=== PATIENT | male | born 1955 | race Native Hawaiian/Other Pacific Islander ===

== ENCOUNTER 2018-02-19 09:28 | Outpatient (CLI) | payer MEDICARE, MEDICAID ==
--- NOTE | 2018-02-19 11:51 | MRI ---
PRE AND POSTCONTRAST ENHANCED MRI IMAGES OF THE BRAIN: HISTORY: Amnesia, R41.3. FINDINGS: Multiplanar, multisequence pre- and postcontrast-enhanced MRI images of the brain obtained. Images demonstrate the brain to be unremarkable. No evidence of intracranial masses, hemorrhages, st rokes, or contusions seen . Ventricles are of normal size. No significant evidence of brain atrophy seen. No evidence of abnormally enhancing masses or lesions seen. No evidence of old intracranial h emorrhage is seen. IMPRESSION: Normal pre- and postcontrast-enhanced MRI images of the brain. POS: [facility]
== END 2018-02-19 09:29 | disposition home or self-care (01) ==
LOC: BICMRI 09:28
PROVIDERS: ATTEND Family Medicine
DX: R41.3 Other amnesia (principal)
CPT/HCPCS: 70553

== ENCOUNTER 2018-03-23 15:57 | Emergency (ER) | payer MEDICARE, MEDICAID ==
[2018-03-23] MEDS ORDERED: Ketorolac Tromethamine 30 MG/ML VIAL ONE (16:36)
[2018-03-23] MEDS ORDERED: Ketorolac Tromethamine 60 MG/2 ML VIAL ONE (16:37)
== END 2018-03-23 17:52 | disposition home or self-care (01) ==
LOC: ERS 15:57
DX: M54.5 Low back pain (principal)
CPT/HCPCS: 96372; J1885

== ENCOUNTER 2018-03-24 13:00 | Emergency (ER) | payer MEDICARE, MEDICAID | END 2018-03-24 14:20 | disposition home or self-care (01) | LOC: ERS 13:00 | DX: M54.5 Low back pain (principal); Z87.891 Personal history of nicotine dependence | CPT/HCPCS: 99284 ==

== ENCOUNTER 2018-08-12 07:33 | Outpatient (CLI) | payer MEDICARE, OTHER ==
--- NOTE | 2018-08-12 08:35 | CT ---
EXAM: CT abdomen and pelvis with and without IV contrast PROVIDED CLINICAL HISTORY: Hematuria COMPARISON: None FINDINGS: 6 mm noncalcified left lower lobe pulmonary nodule. The lungs are otherwise free of significant opaci ty. There is a 1-2 mm nonobstructing calculus involving the midportion of the right kidney. No additional urinary tract calculi are evident. The liver, spleen, pancreas, kidneys and adrenal glands demonstrate an otherwise unremarkable CT appe arance. A prominent column of Mitchell is noted involving the midportion of the right kidney. The delay ed images demonstrate no evidence for filling defect involving the opacified ureters or urinary bladd er. There is no bowel dilatation, inflammatory fat stranding, free fluid or lymph node enlargement appare nt. Vascular calcifications are seen. The osseous structures demonstrate no concerning osteoblastic or osteolytic lesions. Degenerative silvana nges are seen. IMPRESSION: 1. 1-2 mm nonobstructing right renal calculus. 2. 6 mm noncalcified left lower lobe pulmonary nodule. Correlation with dedicated chest CT is recomme nded to assess for additional nodules.
== END 2018-08-12 07:34 | disposition home or self-care (01) ==
LOC: BICCT 07:33
PROVIDERS: ATTEND Urology
DX: R31.29 Other microscopic hematuria (principal); N20.0 Calculus of kidney; R91.1 Solitary pulmonary nodule
CPT/HCPCS: 74178; 82565

== ENCOUNTER 2018-09-04 19:35 | Emergency (ER) | payer MEDICARE, MEDICAID ==
--- NOTE | 2018-09-04 19:58 | RAD ---
3 views right shoulder: 09/04/2018 COMPARISON: None HISTORY: Injury, trauma, pain FINDINGS: Postoperative anchors overlie the right humeral head. No widening of the acromioclavicular or coracoclavicular interspace. No acute fracture or evidence of dislocation. IMPRESSION: No acute findings.
--- NOTE | 2018-09-04 19:59 | RAD ---
Portable frontal chest radiograph: 09/04/2018 COMPARISON: 03/10/2018 HISTORY: Injury, trauma, pain FINDINGS: Multiple old left-sided rib fractures are again noted. Heart and mediastinal contours are s table. The lungs are clear. IMPRESSION: No acute findings.
--- NOTE | 2018-09-04 20:01 | RAD ---
4 views right knee: 09/04/2018 COMPARISON: None HISTORY: Injury, trauma, pain FINDINGS: Postoperative screws are noted within the proximal right tibia. The bones appear deminerali zed. No displaced fracture or evidence of dislocation. No knee joint effusion. IMPRESSION: No acute osseous abnormality.
--- NOTE | 2018-09-04 20:10 | CT ---
Cervical spine CT without contrast: 09/04/2018 COMPARISON: None HISTORY: Injury, trauma, pain TECHNIQUE: Axial CT imaging at 2.5 mm intervals from skull base through lung apices with coronal and sagittal reformatted imaging FINDINGS: Imaged lung apices unremarkable. The C1 ring, occipital condyles, dens, and C1-2 articulation appear within normal limits. No anterolisthesis or retrolisthesis. There is disc space narrowing with degenerative endplate change and posterior osteophyte formation at C2-3, C5-6, and C6-7. No prevertebral soft tissue swelling. No acute fracture or evidence of dislocation. There is atherosc lerotic calcification of the proximal ICA bilaterally, left greater than right. IMPRESSION: Degenerative change. No acute osseous abnormality. Results called to the ordering physici leatha Lee at 8:08 PM 09/04/2018
--- NOTE | 2018-09-04 20:12 | CT ---
Head CT without contrast 09/04/2018: HISTORY: Trauma, pain TECHNIQUE: Axial CT imaging at 5 mm intervals from vertex through skull base without contrast FINDINGS: Imaged paranasal sinuses and mastoid air cells well-aerated. No displaced calvarial fractur e. No intracranial hemorrhage, midline shift, mass effect, or ventricular enlargement. IMPRESSION: No acute findings. Dr. Lee made aware at 8:08 PM 09/04/2018
== END 2018-09-04 20:27 | disposition home or self-care (01) ==
LOC: ERS 19:35
DX: R51 Headache (principal); M54.2 Cervicalgia; M25.561 Pain in right knee; M25.511 Pain in right shoulder; Z87.891 Personal history of nicotine dependence; V23.4XXA Motorcycle driver injured in collision with car, pick-up truck or van in traffic accident, initial encounter
CPT/HCPCS: 70450; 71045; 72125

== ENCOUNTER 2018-09-10 07:44 | Outpatient (CLI) | payer MEDICARE, OTHER ==
--- NOTE | 2018-09-10 08:25 | CT ---
CT chest noncontrast HISTORY: Lung nodule on CT abdomen. COMPARISON: CT abdomen from 08/12/2018. FINDINGS: A noncalcified 0.6 cm nodule abutting the left posterior hemidiaphragm is stable. Mild atel ectasis at each lung base. In the anterior aspect of the right upper lobe, a 0.8 cm linear nodule abuts the minor fissure. No pleural fluid or pneumothorax. Lack of contrast limits evaluation of the soft tissues. Tiny low-density lesion within the left adrenal gland is consistent with an adenoma. IMPRESSION: Very small pleural-based and subpleural bilateral lung nodules, as detailed above. As a conservative measure, please consider follow-up CT chest in one year to evaluate for stability.
== END 2018-09-10 07:45 | disposition home or self-care (01) ==
LOC: BICCT 07:44
PROVIDERS: ATTEND Family Medicine
DX: R91.8 Other nonspecific abnormal finding of lung field (principal)
CPT/HCPCS: 71250

== ENCOUNTER 2019-03-27 12:43 | Emergency (ER) | payer MEDICARE, OTHER ==
--- NOTE | 2019-03-27 13:41 | RAD ---
LEFT HIP TWO VIEWS: 03/27/2019 PROVIDED CLINICAL HISTORY: Pain status post injury. FINDINGS: Evaluation is limited due to the portable nature of the examination. There is no definite evidence fo r fracture or other acute osseous abnormality. If there is persistent clinical concern conservative management and follow-up imaging are advised. IMPRESSION: As above. POS: [facility]
--- NOTE | 2019-03-27 13:49 | CT ---
CT BRAIN: 03/27/2019 PROVIDED CLINICAL HISTORY: Trauma. COMPARISON: 09/04/2018 FINDINGS: The ventricular system appears normal in size and morphology. There is no evidence for intracranial h emorrhage or mass effect. The extracranial soft tissues and osseous structures demonstrate an unremar kable CT appearance. IMPRESSION: No evidence for intracranial hemorrhage or mass effect. POS: [facility]
[2019-03-27] MEDS ORDERED: Ketorolac Tromethamine 30 MG/ML VIAL ONE (14:26)
== END 2019-03-27 15:15 | disposition home or self-care (01) ==
LOC: ERS 12:43
DX: S30.0XXA Contusion of lower back and pelvis, initial encounter (principal); N40.0 Benign prostatic hyperplasia without lower urinary tract symptoms; F20.9 Schizophrenia, unspecified; V23.4XXA Motorcycle driver injured in collision with car, pick-up truck or van in traffic accident, initial encounter; Z79.891 Long term (current) use of opiate analgesic
CPT/HCPCS: 70450; 96372; G0390; J1885

== ENCOUNTER 2019-03-31 09:38 | Emergency (ER) | payer MEDICARE, OTHER | END 2019-03-31 10:54 | disposition home or self-care (01) | LOC: ERS 09:38 | DX: M25.461 Effusion, right knee (principal); F20.9 Schizophrenia, unspecified; Z87.891 Personal history of nicotine dependence | CPT/HCPCS: 99283 ==

== ENCOUNTER 2019-04-05 09:09 | Outpatient (CLI) | payer MEDICARE, OTHER ==
--- NOTE | 2019-04-05 10:03 | CT ---
CT chest noncontrast HISTORY: Lung nodule. Follow-up. COMPARISON: 09/10/2018. FINDINGS: Lungs remain hyperinflated. An oval noncalcified subsegmental nodule at the right anterior lung base is favored to be within the intersegmental fissure of the right middle lobe. It is 0.7 cm greatest diameter and is stable. A 0.5 cm subpleural nodule within the lateral right lung base within the lateral segment of the right middle lobe is stable. A 0.7 cm noncalcified nodule at the left posterior costophrenic angle abutting the pleura over the di aphragmatic surface is stable. No new lung nodules are apparent. Lack of contrast limits evaluation of the soft tissues. Nonspecific, nonenlarged lymph nodes scattere d about the mediastinum. Old left posterior rib fractures. Tiny adenomas of the adrenal glands appear stable. The inferior mos t image partially shows a small calcification within a nondilated calyx at the posterior aspect of the right kidney. IMPRESSION: Stable CT appearance of subcentimeter bilateral lung nodules. No new abnormalities. Pulmonary hyperinflation. Small nonobstructing right renal calculus. Chronic-type findings are stable.
== END 2019-04-05 09:10 | disposition home or self-care (01) ==
LOC: BICCT 09:09
PROVIDERS: ATTEND Internal Medicine Critical Care Medicine
DX: R91.1 Solitary pulmonary nodule (principal); R91.8 Other nonspecific abnormal finding of lung field; N20.0 Calculus of kidney; D35.00 Benign neoplasm of unspecified adrenal gland
CPT/HCPCS: 71250

== ENCOUNTER 2019-04-08 08:49 | Emergency (ER) | payer MEDICARE, OTHER | END 2019-04-08 10:30 | disposition home or self-care (01) | LOC: ERS 08:49 | DX: M54.16 Radiculopathy, lumbar region (principal); F41.9 Anxiety disorder, unspecified; F32.9 Major depressive disorder, single episode, unspecified; F20.9 Schizophrenia, unspecified | CPT/HCPCS: 99283 ==

== ENCOUNTER 2019-05-07 10:38 | Emergency (ER) | payer MEDICAID, MEDICARE ==
--- NOTE | 2019-05-07 12:01 | RAD ---
EXAM: XR Ribs Lt>=2 View STANDARD PROVIDED CLINICAL HISTORY: Pain status post injury COMPARISON: CT chest 04/05/2019 FINDINGS: Multiple remote posterior left-sided rib fractures are redemonstrated. There is no evidence for an ac tribal displaced left-sided rib fracture, pleural fluid or pneumothorax. IMPRESSION: As above.
[2019-05-07] MEDS ORDERED: HYDROcodone/Acetaminophen 10/325 mg Tablet ONE (12:04)
[2019-05-07] MEDS ORDERED: Ibuprofen 800 MG TAB ONE (12:07)
== END 2019-05-07 12:27 | disposition home or self-care (01) ==
LOC: ERS 10:38
DX: S20.212A Contusion of left front wall of thorax, initial encounter (principal); F41.9 Anxiety disorder, unspecified; F32.9 Major depressive disorder, single episode, unspecified; F20.9 Schizophrenia, unspecified; W18.30XA Fall on same level, unspecified, initial encounter

== ENCOUNTER 2019-05-13 17:13 | Emergency (ER) | payer MEDICAID, MEDICARE ==
--- NOTE | 2019-05-13 20:34 | RAD ---
TWO VIEWS CHEST: 05/13/19 HISTORY: Chest injury. COMPARISON: 09/04/18. FINDINGS: The cardiac silhouette and pulmonary vasculature are within normal limits. There are bibasilar linear densities probably related to atelectasis. Multiple remote left sided rib fractures and deformity a re again seen. There is a mild compression fracture involving a mid thoracic vertebral body. This is seen on prior CT thorax on 04/05/19. Postsurgical changes right shoulder are noted. IMPRESSION: 1. Bibasilar atelectasis, but there is otherwise no acute cardiopulmonary process. 2. Remote left sided rib fractures. POS: [facility]
[2019-05-13] MEDS ORDERED: Ibuprofen 200 MG TAB ONE ×2 (22:46→22:52)
== END 2019-05-13 23:45 | disposition home or self-care (01) ==
LOC: ERS 17:13
DX: S20.212A Contusion of left front wall of thorax, initial encounter (principal); N40.0 Benign prostatic hyperplasia without lower urinary tract symptoms; F41.9 Anxiety disorder, unspecified; F32.9 Major depressive disorder, single episode, unspecified; F20.9 Schizophrenia, unspecified; Z79.899 Other long term (current) drug therapy; W18.30XA Fall on same level, unspecified, initial encounter
CPT/HCPCS: 71046; 93005

== ENCOUNTER 2019-05-16 12:14 | Emergency (ER) | payer MEDICARE, OTHER | END 2019-05-16 12:48 | disposition home or self-care (01) | LOC: ERS 12:14 | DX: S20.212A Contusion of left front wall of thorax, initial encounter (principal); N40.0 Benign prostatic hyperplasia without lower urinary tract symptoms; F41.9 Anxiety disorder, unspecified; F32.9 Major depressive disorder, single episode, unspecified; F20.9 Schizophrenia, unspecified | CPT/HCPCS: 99283 ==

== ENCOUNTER 2019-10-31 15:36 | Observation (INO) | payer MEDICARE, MEDICAID, OTHER ==
[~2019-10-31 15:36] MED LIST: Iopamidol-370 76% 500 ML 1 ML ONE
[2019-10-31] MEDS ORDERED: Acetaminophen 500 MG TAB ONE ×2 (16:11→16:16)
[2019-10-31] MEDS ORDERED: Azithromycin 500 MG VIAL ONE ×2 (16:11→16:16)
[2019-10-31 16:28] LABS: Hemoglobin 15.9 g/dL (14.0-18.0); Mean Corpuscular HGB CONC 33.1 g/dL (32.0-36.0); Mean Corpuscular Volume 93.6 fL (78.0-98.0); Mean Platelet Volume 8.1 fL (7.4-10.4); Platelet Count 240 thou/uL (130-400); RBC Distribution Width 11.9 % (11.5-14.5); Red Blood Cell (RBC) Count 5.14 mill/uL (4.70-6.10); White Blood Cell (WBC) Count 5.8 thou/uL (4.8-10.8)
[2019-10-31 16:43] LABS: Bilirubin Negative (Negative); Blood, Urine Negative (Negative); Clarity Clear (Clear); Glucose, Urine (Dipstick) Normal (Negative); Leukocyte Negative Leu/uL (Negative); Nitrite Negative (Negative); Protein, Urine (Dipstick) Negative (Neg-Trace); Urobilinogen Normal mg/dL (Less than 2)
[2019-10-31 16:46] LABS: ALT (SGPT) 49 U/L (8-55); AST (SGOT) 25 U/L (5-34); Albumin 4.4 g/dL (3.4-4.8); Alkaline Phosphatase 51 U/L (40-110); Anion Gap 13 mmol/L (10-20); BUN (Urea Nitrogen) 16 mg/dL (8.4-25.7); Bilirubin, Total 0.2 mg/dL (0.2-1.2); Calc. Creatinine Clearance 0 mL/min (70-130); Calcium 8.9 mg/dL (7.8-10.44); Carbon Dioxide 25 mmol/L (23-31); Chloride 103 mmol/L (98-107); Estimated GFR-MDRD 56; Glucose 96 mg/dL (80-115); Protein, Total 7.4 g/dL (5.8-8.1); Sodium 137 mmol/L (136-145)
[2019-10-31 16:48] LABS: Band 18 % (5-11); Eosinophils 3 % (0-10); Lymphocytes 5 % (21-51); MDiff Complete? YES; Monocytes 16 % (0-10); Neutrophil 41 % (42-75); Platelet Morphology Comment Appears Adequate; RBC Morphology Normal; Reactive Lymphocytes 16 % (0-10)
[2019-10-31] MEDS ORDERED: cefTRIAXone\\ROCEPHIN 1 GM VIAL ONE (17:26)
--- NOTE | 2019-10-31 18:02 | RAD ---
AP CHEST: History: Fever Comparison: 2019 FINDINGS: Mild elevated left hemidiaphragm is again noted. I cannot exclude hazy infiltrate in the left lung ba se. The lungs otherwise are clear and unchanged. Old left rib fractures again noted. Mild cardiomegal y again noted. IMPRESSION: Elevated left hemidiaphragm and mild cardiomegaly degrade evaluation of the lung base. I cannot exclu de left basilar atelectasis or infiltrate. POS: [facility]
[2019-10-31] MEDS ORDERED: Acetaminophen 650 MG Suppository PR PRN (19:14)
[2019-10-31] MEDS ORDERED: Sodium Chloride 0.65% Nasal 44 ML BOT EA NARE PRN (19:17)
--- NOTE | 2019-10-31 19:46 | CT ---
CTA Angio Chest W WO Con 10/31/2019 7:18 PM Indication: Shortness of breath with low O2 sats, cough and headache Technique: Multiple CTA images were obtained of the thorax with IV contrast. 3-D rendering: MIP liss nstructed images were created and reviewed. Comparison: CT of the thorax without contrast dated April 05, 2019 Findings: Pulmonary arteries: No central or segmental pulmonary embolus is evident. Heart and Aorta: There are mild vascular calcification involving the thoracic aorta and coronary art eries. Mediastinum:Normal appearing. No enlarged lymph nodes. Lungs:There are peripheral areas of airspace opacity and volume loss involving the posterior lower lo bes bilaterally as well as portions of the right middle lobe and lingula. No air bronchograms are evident. Pleural space: Clear. Upper Abdomen: No acute abnormality. Osseous Structures: Mild superior endplate compression abnormalities of T4 and T8 are stable. No acu te fracture or subluxation demonstrated. There is scattered degenerative and osteoarthritic change present. Soft tissues:No abnormality. Other findings:None. Impression: 1. No central or segmental pulmonary embolus demonstrated. 2. Peripheral areas of subsegmental volume loss and airspace opacity within the posterior lower lobes as well as portions the right middle lobe and lingula. This is not a typical pattern seen with Covid 19 infection; however, an atypical bronchopneumonia, possibly related Covid 19 infection, canno t be entirely excluded. Would recommend consideration for Covid testing and continued radiographic follow-up are
--- NOTE | 2019-10-31 20:40 | HP ---
TIME OF ASSESSMENT: 1830 hours. CHIEF COMPLAINT: Shortness of breath and cough. HISTORY OF PRESENT ILLNESS: Mr. Mora is a 64-year-old gentleman, who presents to the emergency department due to concerns over a new cough and shortness of breath. The patient states he was doing well until having steroid injections to his cervical spine. He states he was experiencing persistent headaches for several days and his son, whom he went to his appointment with, had come down with cold-like symptoms. The patient became concerned that he had been exposed to COVID-19 when going to appointments with his son and they did ride in a car together. The patient states his cough has been persistent and dry. He has had nasal congestion, which he feels does contribute to the shortness of breath. He does feel somewhat anxious and worried about being exposed to COVID-19. He was not feeling better and felt generally unwell, therefore opted to come in and seek medical attention. He denies having any fevers at home. Denies having any chest pain. Denies having any nausea, vomiting, or diarrhea. No abdominal pain. No urinary symptoms. All other review of systems are negative. EMERGENCY DEPARTMENT COURSE: In the emergency department, he underwent a chest x-ray that showed an elevated left hemidiaphragm and mild cardiomegaly and it was said that left basilar atelectasis or infiltrate cannot be excluded. He had laboratory studies done showing a white count of 5.8, hemoglobin 15.9, hematocrit 48.1, platelets 240, bands 18. BMP unremarkable. LFTs normal. GFR 56, creatinine 1.30. Lactic acid 0.7. Urinalysis was done and was unremarkable. On initial presentation, he was noted to have sats of 95% on 2 L. Currently, sats are 98% on 4 L. He has had a low-grade temperature of 99.2. He has been slightly tachycardic from a pulse of 109 to 117. Blood pressure has been stable. The patient was given 1 L of normal saline and started on antibiotics for pneumonia (Rocephin and azithromycin). He was given Tylenol for his low-grade temperature. COVID-19 testing done. PAST MEDICAL HISTORY: 1. Anxiety. 2. Depression. 3. Schizophrenia. 4. Chronic cervical spine pain. PAST SURGICAL HISTORY: 1. Right shoulder surgery in 2012. 2. Right knee surgery in 2004. SOCIAL HISTORY: The patient denies any current tobacco use, but he did smoke previously and quit more than 10 years ago. Denies any heavy alcohol consumption. Denies any drug use. ALLERGIES: NO KNOWN DRUG ALLERGIES. CURRENT MEDICATIONS: None. PHYSICAL EXAMINATION: GENERAL: The patient appears well developed, well nourished, and in no acute distress. VITAL SIGNS: Temperature 99.2, pulse 109, blood pressure 162/92, respirations 22, O2 sats 95% on 2 L of O2 by nasal cannula. HEENT: Normocephalic and atraumatic. Pupils are equal, round, and reactive to light. Sclerae icterus. Oropharynx is clear. NECK: Supple. LUNGS: Coarse sounds at the bilateral bases. CARDIAC: Regular rate and rhythm. ABDOMEN: Soft, nontender, nondistended. Normoactive bowel sounds present. No guarding or rigidity. No renal angle tenderness. EXTREMITIES: No lower leg swelling or edema. No calf tenderness. NEUROLOGIC: Alert and oriented x3. No neuro deficits on exam. SKIN: Warm and dry. INVESTIGATIONS: As mentioned above in HPI. IMPRESSION AND PLAN: Mr. Mora is a 64-year-old gentleman, has been admitted for management of the following. 1. Suspected pneumonia. The patient is started on IV antibiotics with azithromycin and Rocephin. We will continue antibiotics as he does have bandemia and low- grade temperature. CT angiogram of the chest pending, we will monitor O2 saturations. Coronavirus disease testing pending. 2. Shortness of breath. Chest x-ray notable for mild cardiomegaly. The patient without any known history of heart failure/cardiac disease. We will add BNP to the labs. Consider echocardiogram once Coronavirus disease testing negative. Again , we will continue to monitor O2 saturations. Gentle hydration. Shortness of breath seemed to be mainly associated with nasal congestion. We will give [place] nasal spray to clear his sinuses. 3. Suspected Coronavirus disease-19. Testing done in the emergency department and results currently pending. 4. Gastrointestinal prophylaxis with famotidine. 5. Deep venous thrombosis prophylaxis. CT angiogram to rule out pulmonary embolism pending. If negative, I will order mechanical SCDs. 6. Code status full. Surrogate decision maker is his son, Dung Mora. Case discussed with attending, who agrees upon care as described above. Job ID: [id number] MTDD
[2019-10-31] MEDS ORDERED: Cepastat Lozenges 1 LOZ PO PRN (22:06)
[2019-10-31] MEDS ORDERED: diphenhydrAMINE 25 MG CAP PO PRN (22:07)
[2019-10-31] MEDS: Acetaminophen 325 MG TAB PO PRN (22:31)
[2019-11-01] MEDS ORDERED: Ketorolac Tromethamine 30 MG/ML VIAL IVP PRN (00:29)
[2019-11-01] MEDS: Acetaminophen 325 MG TAB PO PRN ×3 (05:11→21:08)
[2019-11-01 05:34] LABS: #Lymphocytes 1.5 thou/uL (1.20-3.40); #Monocytes 0.8 thou/uL (0.11-0.59); #Neutrophils 3.9 thou/uL (1.40-6.50); %Basophils 0.8 % (0.0-1.0); %Eosinophils 0.6 % (0.0-10.0); %Lymphocytes 23.5 % (21.0-51.0); %Monocytes 12.2 % (0.0-10.0); %Neutrophils 62.9 % (42.0-75.0); Hemoglobin 16.1 g/dL (14.0-18.0); Mean Corpuscular HGB CONC 33.1 g/dL (32.0-36.0); Mean Corpuscular Hemoglobin 31.4 pg (27.0-31.0); Mean Corpuscular Volume 95.1 fL (78.0-98.0); Mean Platelet Volume 7.9 fL (7.4-10.4); Platelet Count 221 thou/uL (130-400); Red Blood Cell (RBC) Count 5.13 mill/uL (4.70-6.10); White Blood Cell (WBC) Count 6.2 thou/uL (4.8-10.8)
[2019-11-01 05:54] LABS: ALT (SGPT) 40 U/L (8-55); AST (SGOT) 22 U/L (5-34); Alkaline Phosphatase 41 U/L (40-110); Anion Gap 14 mmol/L (10-20); BUN (Urea Nitrogen) 15 mg/dL (8.4-25.7); Bilirubin, Total 0.4 mg/dL (0.2-1.2); Calc. Creatinine Clearance 0 mL/min (70-130); Calcium 8.5 mg/dL (7.8-10.44); Carbon Dioxide 22 mmol/L (23-31); Chloride 105 mmol/L (98-107); Estimated GFR-MDRD 83; Globulin 2.7 g/dL (2.4-3.5); Glucose 97 mg/dL (80-115); Potassium 4.2 mmol/L (3.5-5.1); Protein, Total 6.7 g/dL (5.8-8.1); Sodium 137 mmol/L (136-145)
--- NOTE | 2019-11-01 09:17 | PDOC.HOSPP ---
- Subjective Encounter Date: 11/01/19 Encounter Time: 12:20 Subjective: Patient with significant shortness of breath on and off, mostly sating well on RA, but just now with tachypnea, put on 2L NC, sats at 92% - Objective Vital Signs & Weight: Vital Signs (12 hours) Temp Pulse Resp BP BP Pulse Ox 11/01/19 08:33 98.1 F 85 22 H 125/78 95 11/01/19 02:30 99.9 F H 94 24 H 130/78 2 L 10/31/19 23:55 103 F H 103 H 24 H 10/31/19 22:00 101.4 F H 87 30 H 96 10/31/19 21:45 99.4 F 103 H 22 H 143/86 H 96 Result Diagrams: 11/01/19 05:09 11/01/19 05:09 Hospitalist ROS - Review of Systems Constitutional: denies: fever, chills Respiratory: reports: cough, shortness of breath, SOB with excertion Cardiovascular: denies: chest pain Gastrointestinal: denies: nausea, vomiting, abdominal pain - Medication Medications: Active Medications Generic Name Dose Route Start Last Admin Trade Name Freq PRN Reason Stop Dose Admin Acetaminophen 650 mg 10/31/19 19:14 11/01/19 05:11 Tylenol PO 650 mg Q4H PRN Administration Headache/Fever/Mild Pain (1-3) Diphenhydramine HCl 25 mg 10/31/19 22:07 10/31/19 22:31 Benadryl PO 25 mg HSPRN PRN Administration Itching & Insomnia Ketorolac Tromethamine 15 mg 11/01/19 00:29 11/01/19 00:42 Toradol IVP 11/06/19 00:30 15 mg Q6H PRN Administration Pain Pantoprazole Sodium 40 mg 11/01/19 09:00 11/01/19 08:08 Protonix PO 40 mg DAILY RIYA Administration Sodium Chloride 0 ml 10/31/19 19:17 10/31/19 22:31 [place] Nasal [place] 0.65% EA NARE 2 sprays TIDPRN PRN Administration Nasal Congestion Throat Lozenges 1 cory 10/31/19 22:06 10/31/19 22:31 Cepastat Lozenges PO 1 cory Q2H PRN Administration Sore Throat - Exam General Appearance: NAD, awake alert ENT: moist mucosa Heart: RRR, no murmur, no gallops, no rubs Respiratory: CTAB, no wheezes, no rales, no ronchi Respiratory - other findings: mild increased WOB Gastrointestinal: soft, non-tender, non-distended, normal bowel sounds Psychiatric: normal behavior, A&O x 3 Psychiatric - other findings: anxious Hosp A/P (1) Pneumonia Code(s): J18.9 - PNEUMONIA, UNSPECIFIED ORGANISM Status: Acute (2) Suspected COVID-19 virus infection Code(s): Z20.828 - CONTACT W AND EXPOSURE TO OTH VIRAL COMMUNICABLE DISEASES Status: Acute (3) Chronic neck pain Code(s): M54.2 - CERVICALGIA; G89.29 - OTHER CHRONIC PAIN Status: Chronic (4) Anxiety Code(s): F41.9 - ANXIETY DISORDER, UNSPECIFIED Status: Chronic (5) Schizophrenia Code(s): F20.9 - SCHIZOPHRENIA, UNSPECIFIED Status: Chronic - Plan Patient with monocytosis, suspect viral illness. Did spike fever to 101 in the hospital. Covid-19 test pending. If negative will check respiratory viral panel. Only requiring oxygen occasionally at this time, suspect shortness of breath and tachypnea is anxiety related. No evidence of cardiomegaly on the CTA and nml BNP so doubt cardiac disease
--- NOTE | 2019-11-01 12:04 | EKG ---
Test Reason : Blood Pressure : / mmHG Vent. Rate : 116 BPM Atrial Rate : 116 BPM P-R Int : 148 ms QRS Dur : 094 ms QT Int : 314 ms P-R-T Axes : 045 028 028 degrees QTc Int : 436 ms Sinus tachycardia Cannot rule out Anterior infarct , age undetermined Abnormal ECG Confirmed by FIORDALIZA ADEN, JOANNE Olmstead ([id number]), graphic editor JONATHON PEGUERO ([id number]) on 11/01/2019 12:04:21 PM Referred By: Confirmed By:JOANNE MANCERA MD
[2019-11-01 14:09] LABS: SARS-CoV-2 MS2 Positive; SARS-CoV-2 N Gene Positive; SARS-CoV-2 S Gene Positive; SARS-CoV-2 orf1ab Positive
[2019-11-01] MEDS ORDERED: Azithromycin 500 MG in Sodium Chloride 0.9% 250 ML 250 ML IVPB SCH (16:00)
[2019-11-01] MEDS ORDERED: cefTRIAXone\\ROCEPHIN 1 GM in Sodium Chloride 0.9% 100 ML IVPB SCH (17:00)
--- NOTE | 2019-11-02 08:43 | PDOC.HOSPP ---
- Subjective Encounter Date: 11/02/19 Encounter Time: 13:00 Subjective: Patient feeling much better. No more shortness of breath. Hasn't coughed any this morning. No more fever. - Objective Vital Signs & Weight: Vital Signs (12 hours) Temp Pulse Resp BP BP Pulse Ox 11/02/19 04:26 97.8 F 77 18 121/54 L 95 11/02/19 01:41 93 L 11/02/19 00:40 98.6 F 77 20 119/65 93 L 11/01/19 21:08 98.9 F 81 20 128/70 96 I&O: 11/01/19 11/02/19 11/03/19 06:59 06:59 06:59 Intake Total 2530 Balance 2530 Result Diagrams: 11/01/19 05:09 11/01/19 05:09 Hospitalist ROS - Review of Systems Constitutional: denies: fever, chills Respiratory: denies: cough, shortness of breath Cardiovascular: denies: chest pain, palpitations Gastrointestinal: denies: nausea, vomiting, abdominal pain - Medication Medications: Active Medications Generic Name Dose Route Start Last Admin Trade Name Freq PRN Reason Stop Dose Admin Acetaminophen 650 mg 10/31/19 19:14 11/01/19 21:08 Tylenol PO 650 mg Q4H PRN Administration Headache/Fever/Mild Pain (1-3) Diphenhydramine HCl 25 mg 10/31/19 22:07 10/31/19 22:31 Benadryl PO 25 mg HSPRN PRN Administration Itching & Insomnia Azithromycin 500 mg/ Sodium 250 mls @ 250 mls/hr 11/01/19 16:00 11/01/19 16: 04 Chloride IVPB 250 mls Q24HR RIYA Administration Ceftriaxone Sodium 1 gm/ 100 mls @ 200 mls/hr 11/01/19 17:00 11/01/19 16:04 Sodium Chloride IVPB 100 mls Q24HR RIYA Administration Ketorolac Tromethamine 15 mg 11/01/19 00:29 11/01/19 00:42 Toradol IVP 11/06/19 00:30 15 mg Q6H PRN Administration Pain Pantoprazole Sodium 40 mg 11/01/19 09:00 11/01/19 08:08 Protonix PO 40 mg DAILY RIYA Administration Sodium Chloride 0 ml 10/31/19 19:17 10/31/19 22:31 [place] Nasal [place] 0.65% EA NARE 2 sprays TIDPRN PRN Administration Nasal Congestion Throat Lozenges 1 cory 10/31/19 22:06 10/31/19 22:31 Cepastat Lozenges PO 1 cory Q2H PRN Administration Sore Throat - Exam General Appearance: NAD, awake alert ENT: moist mucosa Heart: RRR, no murmur, no gallops, no rubs Respiratory: CTAB, no wheezes, no rales, no ronchi Gastrointestinal: soft, non-tender, non-distended, normal bowel sounds Psychiatric: normal affect, normal behavior, A&O x 3 Hosp A/P (1) Pneumonia Code(s): J18.9 - PNEUMONIA, UNSPECIFIED ORGANISM Status: Acute (2) Suspected COVID-19 virus infection Code(s): Z20.828 - CONTACT W AND EXPOSURE TO OTH VIRAL COMMUNICABLE DISEASES Status: Acute (3) Chronic neck pain Code(s): M54.2 - CERVICALGIA; G89.29 - OTHER CHRONIC PAIN Status: Chronic (4) Anxiety Code(s): F41.9 - ANXIETY DISORDER, UNSPECIFIED Status: Chronic (5) Schizophrenia Code(s): F20.9 - SCHIZOPHRENIA, UNSPECIFIED Status: Chronic - Plan Covid positive. Sating well off O2. Intermittent SOB and tachypnea appears anxiety related- resolved after he talked to a friend of his in [place] that is a doctor and he realized that he doesn't have a severe case. Very happy this morning. No evidence of cardiomegaly on the CTA and nml BNP so doubt cardiac disease Ok to d/c home to complete 10 day isolation.
[2019-11-02 12:50] VITALS: BP 143/90; TEMP 97.8
--- NOTE | 2019-11-03 01:37 | DIS ---
DATE OF ADMISSION: 10/31/2019 DATE OF DISCHARGE: 11/02/2019 PRIMARY CARE PHYSICIAN: Dr. Decker. REASON FOR ADMISSION: Shortness of breath and cough with COVID exposure. DIAGNOSES AT DISCHARGE: 1. COVID pneumonia. 2. Anxiety. 3. Schizophrenia. 4. Chronic neck pain. PROCEDURES: 1. CT angio of the chest without contrast showing no central or segmental pulmonary embolism. I did have some peripheral areas of subsegmental volume loss and airspace opacity within the posterior lobes, not a typical pattern for COVID-19 infection, but possibly atypical bronchopneumonia versus an atypical COVID-19 infection. CONSULTATIONS: None. SUMMARY OF HOSPITAL COURSE: This is a 64-year-old [place] gentleman who came to the emergency room with cough and shortness of breath, also with some headaches for several days. His son did come down with cold-like symptoms as well and patient was concerned he might have been exposed to COVID-19 during his doctor's appointment for his neck to get some injections. The patient was found to have tachypnea on and off. This improved when given oxygen. However, his oxygen saturations were never low. He did have possible cardiomegaly on his chest x-rays. A B-type natriuretic peptide was don, which was normal and a CT angio showed no clots and no evidence of cardiomegaly. The patient was observed in the hospital. He never had any desaturations. He had intermittent episodes of significant shortness of breath with tachypnea. This was thought possibly due to his anxiety. The patient's test eventually did come back positive for COVID-19. On the last day of hospital admission, we did talk to a doctor who also [place], who was able to speak him in his language and explain this is how severe COVID look like. The patient was relieved as his symptoms were actually mild and he had no more difficulties with shortness of breath or tachypneic after that. He was saturating well on room air, was eating well and was ready to be discharged home. DISCHARGE MANAGEMENT: Discharged home. ACTIVITY: As tolerated. DIET: Healthy heart diet. FOLLOWUP: Follow up with Dr. Decker in 1 to 2 weeks as needed. He is to self-isolate for another 7 days and at least for full 10 days since his symptoms started and can then stop his isolation after he has no fever for 3 days, off all medicines and after all of his cold symptoms are gone. Job ID: [id number]
== END 2019-11-02 14:15 | disposition home or self-care (01) ==
LOC: ERS 15:36 → T4-B 19:57
PROVIDERS: ADMIT Family Medicine; ATTEND Family Medicine
DX: U07.1 COVID-19 (principal); J12.89 Other viral pneumonia; F41.9 Anxiety disorder, unspecified; F32.9 Major depressive disorder, single episode, unspecified; F20.9 Schizophrenia, unspecified; G89.29 Other chronic pain; M54.2 Cervicalgia; Z87.891 Personal history of nicotine dependence
CPT/HCPCS: 71045; 71275; 80053 ×2; 81003; 83605; 83735; 83880; 85025 ×2; 87040; 90732; 93005; 94760; 96365; 96366; 96367; 96375; 99291; G0009; G0378 ×3; U0003; 36415; 87635; 90471; J0456; J0696; J1885; J3490; J7050; Q0163; Q9967

== ENCOUNTER 2020-03-02 12:09 | Outpatient (CLI) | payer MEDICARE, MEDICAID ==
--- NOTE | 2020-03-02 13:10 | ULT ---
BILATERAL CAROTID DUPLEX ULTRASOUND: HISTORY: Bilateral carotid bruits TECHNIQUE: Grayscale, color-flow and spectral Doppler ultrasound imaging of the extracranial carotid artery syst ems was performed bilaterally. FINDINGS: There is plaque formation on either side. The peak systolic velocity in the right ICA measures 85 cm/s with an end-diastolic velocity of 40 cm/ s and a systolic ratio of 0.73. The peak systolic velocity in the left ICA measures 76 cm/s with an end-diastolic velocity of 36 cm/s and a systolic ratio of 0.66. Flow in both vertebral arteries remains antegrade. IMPRESSION: No evidence of hemodynamically significant stenosis in either ICA.
--- NOTE | 2020-03-02 13:59 | MRI ---
MR the lumbar spine without contrast INDICATION: 64-year-old male with history of right-sided radicular pain COMPARISON: Lumbar spinal radiographs dated March 24, 2018 TECHNIQUE: Multiplanar multisequence MR images were obtained of lumbar spine without IV contrast. FINDINGS: Bone marrow: There is a nondisplaced stress fracture involving the interarticularis region of the rig ht S1 vertebral body best seen on image 37 series 7 image 2 of series 6. An additional stress fracture is seen involving the right L5 pedicle on image 30 of series 7 and image 3 of series 6. Distal spinal cord and conus: Normal. The conus seen to terminate at L2. Visualized retroperitoneum and paraspinal soft tissues: Normal. Vertebral levels: L5-S1: There is grade 1 anterolisthesis of L5 and S1. There is moderate bilateral facet joint degener ative change. There is a broad-based disc bulge. There is loss of disc space height. Constellation of findings induces mild bilateral neural foraminal narrowing.. L4-5: There is a broad-based disc bulge with mild facet joint degenerative change and loss of disc sp parris height. There is mild bilateral neural foraminal narrowing. L3-4: There is a mild broad-based disc bulge without appreciable central canal narrowing. There is mi ld encroachment on the neural foramina bilaterally. L2-3: There is a mild broad-based bulge with mild facet joint degenerative change but no appreciable central canal or neural foraminal narrowing L1-L2: No appreciable central canal or neuroforaminal narrowing. T12-L1: No appreciable central canal or neuroforaminal narrowing. IMPRESSION: 1. Nondisplaced stress fractures involving the right S1 pars interarticularis and the right L5 pedicl e. 2. Mild spondylosis of the lumbar spine with mild bilateral neural foraminal narrowing seen at L3-4 t hrough L5-S1.
== END 2020-03-02 12:10 | disposition home or self-care (01) ==
LOC: BICULT 12:09
PROVIDERS: ATTEND Family Medicine
DX: R09.89 Other specified symptoms and signs involving the circulatory and respiratory systems (principal); M48.47XA Fatigue fracture of vertebra, lumbosacral region, initial encounter for fracture; M47.26 Other spondylosis with radiculopathy, lumbar region; M47.27 Other spondylosis with radiculopathy, lumbosacral region; M48.061 Spinal stenosis, lumbar region without neurogenic claudication; M48.07 Spinal stenosis, lumbosacral region
CPT/HCPCS: 72148; 93880

== ENCOUNTER 2020-04-04 09:39 | Outpatient (CLI) | payer MEDICARE, OTHER ==
--- NOTE | 2020-04-04 11:07 | CT ---
CT THORAX WITHOUT CONTRAST: INDICATION: Followup lung nodules. COMPARISON: CT thorax dated 09/20/2018, 04/05/2019, and a CTA PE examination dated 10/23/2019. FINDINGS: Previously seen scattered areas of multifocal bronchopneumonia have largely resolved. There is some mild residual subsegmental atelectasis within portions of the lingula and left lower lobe. The 7 mm pulmonary nodule within the right middle lobe and 4 mm pulmonary nodule within the lateral right midd le lobe are stable. The 7 mm pleural-based pulmonary nodule in the posteromedial left lower lobe on image 150 of series 3 is stable measuring 6.4 mm. No new pulmonary nodule is evident. No enlarged l ymph nodes are evident. There are scattered coronary artery and thoracic aorta calcifications. A sm all 1.3 cm left adrenal adenoma is stable. There is mild fatty infiltration of the liver. There is scattered degenerative and osteoarthritic change. There are multiple healed left-sided rib fractures that are similar-appearing. IMPRESSION: 1. Stable pulmonary nodules. Followup examination in September of 2020 is recommended to document full 2 years worth of stability. 2. Resolution of previously seen multifocal bronchopneumonia. 3. Left adrenal adenoma. 4. Fatty liver. 5. Multiple healed left-sided rib fractures. POS: [facility]
== END 2020-04-04 09:40 | disposition home or self-care (01) ==
LOC: BICCT 09:39
PROVIDERS: ATTEND Internal Medicine Critical Care Medicine
DX: R91.8 Other nonspecific abnormal finding of lung field (principal); K76.0 Fatty (change of) liver, not elsewhere classified; D35.02 Benign neoplasm of left adrenal gland; S22.42XA Multiple fractures of ribs, left side, initial encounter for closed fracture
CPT/HCPCS: 71250

== ENCOUNTER 2020-12-31 19:00 | Outpatient (CLI) | payer MEDICARE, MEDICAID, OTHER | END 2020-12-31 19:01 | disposition home or self-care (01) | LOC: SLEEPLAB 19:00 | PROVIDERS: ATTEND Family Medicine | DX: G47.33 Obstructive sleep apnea (adult) (pediatric) (principal); G47.10 Hypersomnia, unspecified; G25.81 Restless legs syndrome; G47.61 Periodic limb movement disorder; R53.83 Other fatigue; F32.9 Major depressive disorder, single episode, unspecified; G47.00 Insomnia, unspecified; R35.1 Nocturia; S06.9X0A Unspecified intracranial injury without loss of consciousness, initial encounter; F20.9 Schizophrenia, unspecified; K21.9 Gastro-esophageal reflux disease without esophagitis; R06.83 Snoring; E66.9 Obesity, unspecified; Z68.34 Body mass index [BMI] 34.0-34.9, adult; V89.2XXA Person injured in unspecified motor-vehicle accident, traffic, initial encounter | CPT/HCPCS: 95810 ==

== ENCOUNTER 2021-03-12 11:48 | Emergency (ER) | payer MEDICARE, MEDICAID ==
[2021-03-12 13:55] LABS: #Eosinphils 0.3 thou/uL (0.0-0.7); #Lymphocytes 1.4 thou/uL (1.20-3.40); #Monocytes 0.6 thou/uL (0.11-0.59); #Neutrophils 3.8 thou/uL (1.40-6.50); %Basophils 0.8 % (0.0-1.0); %Eosinophils 4.6 % (0.0-10.0); %Lymphocytes 22.7 % (21.0-51.0); %Monocytes 9.1 % (0.0-10.0); %Neutrophils 62.8 % (42.0-75.0); Hemoglobin 15.7 g/dL (14.0-18.0); Mean Corpuscular Hemoglobin 32.3 pg (27.0-31.0); Mean Corpuscular Volume 92.3 fL (78.0-98.0); Mean Platelet Volume 7.5 fL (7.4-10.4); Platelet Count 246 thou/uL (130-400); RBC Distribution Width 11.5 % (11.5-14.5); Red Blood Cell (RBC) Count 4.87 mill/uL (4.70-6.10); White Blood Cell (WBC) Count 6.1 thou/uL (4.8-10.8)
[2021-03-12 14:16] LABS: ALT (SGPT) 39 U/L (8-55); AST (SGOT) 23 U/L (5-34); Albumin 4.2 g/dL (3.4-4.8); Alkaline Phosphatase 47 U/L (40-110); Anion Gap 11 mmol/L (10-20); BUN (Urea Nitrogen) 15 mg/dL (8.4-25.7); Bilirubin, Total 0.4 mg/dL (0.2-1.2); Calc. Creatinine Clearance 0 mL/min (70-130); Calcium 9.3 mg/dL (7.8-10.44); Carbon Dioxide 26 mmol/L (23-31); Chloride 106 mmol/L (98-107); Globulin 2.5 g/dL (2.4-3.5); Glucose 108 mg/dL (80-115); Lipase 16 U/L (8-78); Potassium 3.9 mmol/L (3.5-5.1); Protein, Total 6.7 g/dL (5.8-8.1); Sodium 139 mmol/L (136-145)
== END 2021-03-12 17:12 | disposition home or self-care (01) ==
LOC: ERS 11:48
DX: R10.11 Right upper quadrant pain (principal); N40.0 Benign prostatic hyperplasia without lower urinary tract symptoms
CPT/HCPCS: 36415; 76705; 80053; 83690; 85025

== ENCOUNTER 2021-04-13 10:13 | Outpatient (CLI) | payer MEDICARE, MEDICAID | END 2021-04-13 10:14 | disposition home or self-care (01) | LOC: BICCT 10:13 | PROVIDERS: ATTEND Internal Medicine Critical Care Medicine | DX: R91.8 Other nonspecific abnormal finding of lung field (principal) | CPT/HCPCS: 71250 ==

== ENCOUNTER 2021-06-30 10:49 | Inpatient (IN) | payer MEDICARE, OTHER ==
[2021-06-30] MEDS ORDERED: Iopamidol-370 76% 500 ML 1 ML ONE (11:44)
[2021-06-30 12:29] LABS: Bacteria/HPF 1+ HPF (None Seen); Bilirubin Negative (Negative); Blood, Urine Negative (Negative); Clarity Turbid (Clear); Glucose, Urine (Dipstick) Normal (Negative); Ketone, Urine Negative (Negative); Leukocyte 500 Leu/uL (Negative); Nitrite Negative (Negative); Protein, Urine (Dipstick) 70 mg/dL (Neg-Trace); RBC/HPF 0-3 HPF (0-3); Specific Gravity, Urine 1.039 (1.002-1.036); Squamous Epithelial 0-3 HPF (0-3); WBC/HPF Greater than 50 HPF (0-3)
[2021-06-30 12:32] LABS: #Eosinphils 0.1 thou/uL (0.0-0.7); #Lymphocytes 1.7 thou/uL (1.20-3.40); #Monocytes 1.1 thou/uL (0.11-0.59); #Neutrophils 15.3 thou/uL (1.40-6.50); %Basophils 0.1 % (0.0-1.0); %Eosinophils 0.4 % (0.0-10.0); %Lymphocytes 9.2 % (21.0-51.0); %Monocytes 6.2 % (0.0-10.0); %Neutrophils 84.1 % (42.0-75.0); Mean Corpuscular HGB CONC 32.8 g/dL (32.0-36.0); Mean Corpuscular Hemoglobin 31.4 pg (27.0-31.0); Mean Corpuscular Volume 95.9 fL (78.0-98.0); Mean Platelet Volume 7.8 fL (7.4-10.4); Platelet Count 256 thou/uL (130-400); RBC Distribution Width 11.9 % (11.5-14.5); Red Blood Cell (RBC) Count 5.09 mill/uL (4.70-6.10); White Blood Cell (WBC) Count 18.2 thou/uL (4.8-10.8)
[2021-06-30 12:40] LABS: ALT (SGPT) 33 U/L (8-55); AST (SGOT) 16 U/L (5-34); Albumin 4.4 g/dL (3.4-4.8); Alkaline Phosphatase 47 U/L (40-110); Anion Gap 16 mmol/L (10-20); BUN (Urea Nitrogen) 14 mg/dL (8.4-25.7); Calc. Creatinine Clearance 0 mL/min (70-130); Calcium 8.7 mg/dL (7.8-10.44); Carbon Dioxide 24 mmol/L (23-31); Chloride 106 mmol/L (98-107); Globulin 2.9 g/dL (2.4-3.5); Glucose 82 mg/dL (80-115); Potassium 4.7 mmol/L (3.5-5.1); Protein, Total 7.3 g/dL (5.8-8.1); Sodium 141 mmol/L (136-145)
[2021-06-30] MEDS ORDERED: Lorazepam 2 MG/ML VIAL ONE ×2 (13:53→14:14)
[2021-06-30] MEDS ORDERED: cefTRIAXone\\ROCEPHIN 2 GM VIAL ONE (13:53)
[2021-06-30] MEDS ORDERED: Vancomycin 1 GM/200 ML BAG ONE (13:53)
[2021-06-30] MEDS ORDERED: Lorazepam 1 MG TAB ONE (13:56)
[2021-06-30] MEDS ORDERED: Ondansetron PF 4 MG/2 ML Vial IVP PRN (16:34)
[2021-06-30] MEDS ORDERED: Senokot S 8.6-50 MG TAB PO PRN (16:38)
[2021-06-30] MEDS ORDERED: Polyethylene Glycol 3350 17 GM Packet PO PRN (16:38)
[2021-06-30] MEDS ORDERED: oxyCODONE 5 MG TAB PO PRN (16:39)
[2021-06-30] MEDS ORDERED: Sodium Chloride 0.9% 1,000 ML IV SCH (16:45)
[2021-06-30] MEDS ORDERED: Acetaminophen 500 MG TAB ONE (16:47)
[2021-06-30 18:03] VITALS: BMI 36.1
[2021-06-30] MEDS ORDERED: Vancomycin HCl 750 MG in Sodium Chloride 0.9% 250 ML 250 ML IVPB SCH (18:30)
[2021-06-30] MEDS: Acetaminophen 325 MG TAB PO PRN (18:57)
[2021-06-30] MEDS: Aripiprazole 10 MG TAB PO SCH (20:59)
[2021-06-30] MEDS: Tamsulosin HCl 0.4 MG CAP PO SCH (21:00)
[2021-06-30] MEDS: DULoxetine 60 MG CAP PO SCH (21:00)
[2021-06-30] MEDS: Gabapentin 300 MG CAP PO SCH (21:00)
[2021-06-30] MEDS: Cefepime 2 GM in Sodium Chloride 0.9% 100 ML IVPB SCH (21:01)
[2021-06-30 23:43] LABS: SARS-CoV-2 PCR by NAA Not Detected (NotDetected)
[2021-07-01 06:11] LABS: Hemoglobin 13.8 g/dL (14.0-18.0); Mean Corpuscular HGB CONC 32.8 g/dL (32.0-36.0); Mean Corpuscular Hemoglobin 31.8 pg (27.0-31.0); Mean Corpuscular Volume 96.9 fL (78.0-98.0); Platelet Count 201 thou/uL (130-400); RBC Distribution Width 11.8 % (11.5-14.5); Red Blood Cell (RBC) Count 4.34 mill/uL (4.70-6.10); White Blood Cell (WBC) Count 12.8 thou/uL (4.8-10.8)
[2021-07-01 06:27] LABS: Anion Gap 12 mmol/L (10-20); BUN (Urea Nitrogen) 12 mg/dL (8.4-25.7); Calc. Creatinine Clearance 178 mL/min (70-130); Carbon Dioxide 22 mmol/L (23-31); Chloride 108 mmol/L (98-107); Glucose 126 mg/dL (80-115); Potassium 4.1 mmol/L (3.5-5.1); Sodium 138 mmol/L (136-145)
[2021-07-01 06:39] LABS: Band 1 % (5-11); Lymphocytes 7 % (21-51); MDiff Complete? YES; Monocytes 4 % (0-10); Neutrophil 88 % (42-75)
[2021-07-01] MEDS: Bupropion 150 MG XL TAB PO SCH (09:11)
[2021-07-01] MEDS: Atorvastatin Calcium 40 MG TAB PO SCH (09:12)
[2021-07-01] MEDS: Gabapentin 300 MG CAP PO SCH ×2 (09:12→20:04)
[2021-07-01] MEDS: Tamsulosin HCl 0.4 MG CAP PO SCH ×2 (09:12→20:04)
[2021-07-01] MEDS: Enoxaparin Sodium 40 MG/0.4 ML SYRINGE SC SCH (09:12)
[2021-07-01] MEDS: DULoxetine 60 MG CAP PO SCH ×2 (09:13→20:03)
[2021-07-01] MEDS: Vancomycin 1.5 GRAM/300 ML BAG 1.5 GM in Premix Bag 1 BAG IVPB SCH ×2 (09:13→20:54)
[2021-07-01] MEDS: Cefepime 2 GM in Sodium Chloride 0.9% 100 ML IVPB SCH ×2 (12:22→20:03)
[2021-07-01] MEDS: Sodium Chloride 0.45% 1,000 ML IV SCH (12:22)
[2021-07-01] MEDS: Phenazopyridine HCl 100 MG TAB PO SCH ×2 (14:10→20:03)
[2021-07-01] MEDS: Aripiprazole 10 MG TAB PO SCH (20:03)
[2021-07-02 05:41] LABS: #Eosinphils 0.3 thou/uL (0.0-0.7); #Lymphocytes 1.3 thou/uL (1.20-3.40); #Monocytes 0.6 thou/uL (0.11-0.59); #Neutrophils 5.6 thou/uL (1.40-6.50); %Basophils 0.4 % (0.0-1.0); %Eosinophils 3.6 % (0.0-10.0); %Lymphocytes 16.3 % (21.0-51.0); %Monocytes 8.3 % (0.0-10.0); %Neutrophils 71.5 % (42.0-75.0); Hemoglobin 13.9 g/dL (14.0-18.0); Mean Corpuscular HGB CONC 33.1 g/dL (32.0-36.0); Mean Corpuscular Hemoglobin 31.4 pg (27.0-31.0); Mean Corpuscular Volume 95.1 fL (78.0-98.0); Mean Platelet Volume 7.3 fL (7.4-10.4); Platelet Count 222 thou/uL (130-400); RBC Distribution Width 11.5 % (11.5-14.5); Red Blood Cell (RBC) Count 4.43 mill/uL (4.70-6.10); White Blood Cell (WBC) Count 7.8 thou/uL (4.8-10.8)
[2021-07-02] MEDS: Sodium Chloride 0.45% 1,000 ML IV SCH (06:34)
[2021-07-02 06:38] LABS: Anion Gap 13 mmol/L (10-20); BUN (Urea Nitrogen) 8 mg/dL (8.4-25.7); Calc. Creatinine Clearance 163 mL/min (70-130); Calcium 8.2 mg/dL (7.8-10.44); Carbon Dioxide 22 mmol/L (23-31); Chloride 108 mmol/L (98-107); Glucose 113 mg/dL (80-115); Sodium 139 mmol/L (136-145)
[2021-07-02] MEDS: Phenazopyridine HCl 100 MG TAB PO SCH (08:46)
[2021-07-02] MEDS: Tamsulosin HCl 0.4 MG CAP PO SCH ×2 (08:46→20:25)
[2021-07-02] MEDS: Gabapentin 300 MG CAP PO SCH ×2 (08:46→20:25)
[2021-07-02] MEDS: Atorvastatin Calcium 40 MG TAB PO SCH (08:46)
[2021-07-02] MEDS: DULoxetine 60 MG CAP PO SCH ×2 (08:46→20:25)
[2021-07-02] MEDS: Bupropion 150 MG XL TAB PO SCH (08:46)
[2021-07-02] MEDS: Enoxaparin Sodium 40 MG/0.4 ML SYRINGE SC SCH (08:46)
[2021-07-02] MEDS: Cefepime 2 GM in Sodium Chloride 0.9% 100 ML IVPB SCH ×2 (08:47→20:25)
[2021-07-02] MEDS: Vancomycin 1.5 GRAM/300 ML BAG 1.5 GM in Premix Bag 1 BAG IVPB SCH (08:49)
[2021-07-02] MEDS: Aripiprazole 10 MG TAB PO SCH (20:25)
[2021-07-02] MEDS: VANCOMYCIN 1.75 GM/350 ML BAG 1.75 GM in Premix Bag 1 BAG IVPB SCH (21:00)
[2021-07-03] MEDS: Sodium Chloride 0.45% 1,000 ML IV SCH ×2 (03:00→23:00)
[2021-07-03] MEDS: VANCOMYCIN 1.75 GM/350 ML BAG 1.75 GM in Premix Bag 1 BAG IVPB SCH ×2 (08:46→21:05)
[2021-07-03] MEDS: Atorvastatin Calcium 40 MG TAB PO SCH (08:47)
[2021-07-03] MEDS: Bupropion 150 MG XL TAB PO SCH (08:47)
[2021-07-03] MEDS: DULoxetine 60 MG CAP PO SCH ×2 (08:47→21:05)
[2021-07-03] MEDS: Enoxaparin Sodium 40 MG/0.4 ML SYRINGE SC SCH (08:47)
[2021-07-03] MEDS: Gabapentin 300 MG CAP PO SCH ×2 (08:47→21:05)
[2021-07-03] MEDS: Tamsulosin HCl 0.4 MG CAP PO SCH ×2 (08:47→21:05)
[2021-07-03] MEDS: Cefepime 2 GM in Sodium Chloride 0.9% 100 ML IVPB SCH ×2 (08:48→21:05)
[2021-07-03] MEDS: Aripiprazole 10 MG TAB PO SCH (21:00)
[2021-07-04] MEDS: Gabapentin 300 MG CAP PO SCH ×2 (08:23→20:37)
[2021-07-04] MEDS: Bupropion 150 MG XL TAB PO SCH (08:23)
[2021-07-04] MEDS: DULoxetine 60 MG CAP PO SCH ×2 (08:24→20:36)
[2021-07-04] MEDS: Tamsulosin HCl 0.4 MG CAP PO SCH ×2 (08:24→20:37)
[2021-07-04] MEDS: Atorvastatin Calcium 40 MG TAB PO SCH (08:24)
[2021-07-04] MEDS: Cefepime 2 GM in Sodium Chloride 0.9% 100 ML IVPB SCH ×2 (08:25→20:34)
[2021-07-04] MEDS: VANCOMYCIN 1.75 GM/350 ML BAG 1.75 GM in Premix Bag 1 BAG IVPB SCH ×2 (08:25→21:24)
[2021-07-04] MEDS: Enoxaparin Sodium 40 MG/0.4 ML SYRINGE SC SCH (08:25)
[2021-07-04 08:27] LABS: Vancomycin, Trough 15.7 ug/mL
[2021-07-04] MEDS: Acetaminophen 325 MG TAB PO PRN (08:32)
[2021-07-04] MEDS: Sodium Chloride 0.45% 1,000 ML IV SCH (11:05)
[2021-07-04] MEDS: Aripiprazole 10 MG TAB PO SCH (20:38)
[2021-07-05] MEDS: Sodium Chloride 0.45% 1,000 ML IV SCH (06:31)
[2021-07-05] MEDS: Enoxaparin Sodium 40 MG/0.4 ML SYRINGE SC SCH (08:37)
[2021-07-05] MEDS: DULoxetine 60 MG CAP PO SCH (08:38)
[2021-07-05] MEDS: Atorvastatin Calcium 40 MG TAB PO SCH (08:38)
[2021-07-05] MEDS: Cefepime 2 GM in Sodium Chloride 0.9% 100 ML IVPB SCH (08:38)
[2021-07-05] MEDS: Gabapentin 300 MG CAP PO SCH (08:38)
[2021-07-05] MEDS: Tamsulosin HCl 0.4 MG CAP PO SCH (08:38)
[2021-07-05] MEDS: VANCOMYCIN 1.75 GM/350 ML BAG 1.75 GM in Premix Bag 1 BAG IVPB SCH (08:39)
[2021-07-05] MEDS: Bupropion 150 MG XL TAB PO SCH (12:08)
[2021-07-05] MEDS: Acetaminophen 325 MG TAB PO PRN (12:12)
[2021-07-05 12:15] VITALS: BP 156/92; TEMP 97.5
== END 2021-07-05 12:50 | disposition home or self-care (01) | DRG 872 ==
LOC: ERS 10:49 → T4-A 14:53
PROVIDERS: ADMIT Internal Medicine; ATTEND Internal Medicine
DX: A41.52 Sepsis due to Pseudomonas (principal); N30.00 Acute cystitis without hematuria; N13.8 Other obstructive and reflux uropathy; A41.59 Other Gram-negative sepsis; Z20.822 Contact with and (suspected) exposure to COVID-19; F41.9 Anxiety disorder, unspecified; F20.9 Schizophrenia, unspecified; F32.A Depression, unspecified; G89.29 Other chronic pain; M54.9 Dorsalgia, unspecified; M54.2 Cervicalgia; N20.0 Calculus of kidney; E78.5 Hyperlipidemia, unspecified; N41.9 Inflammatory disease of prostate, unspecified; N40.1 Benign prostatic hyperplasia with lower urinary tract symptoms; E88.89 Other specified metabolic disorders; Z79.899 Other long term (current) drug therapy
CPT/HCPCS: 36415; 51798; 52000; 74177; 80048; 80053; 80202; 81003; 81015; 83605; 85025; 87040; 87077; 87086; 87186; 93005; 96365; 96367; 96375; 99214; G0463; J0692; J0696; J1650; J2060; J3370; J3490; J7050; Q9967; U0003; U0005

== ENCOUNTER 2021-09-18 13:21 | Outpatient (CLI) | payer MEDICARE, OTHER ==
[2021-09-18 14:41] LABS: Bilirubin Neg (Negative); Blood, Urine Negative (Negative); Clarity Clear (Clear); Glucose, Urine (Dipstick) Normal (Negative); Ketone, Urine 5 mg/dL (Negative); Leukocyte 25 (Negative); Nitrite Negative (Negative); Protein, Urine (Dipstick) 30 mg/dl (Neg-Trace); Specific Gravity, Urine 1.015 (1.002-1.036)
[2021-09-18 14:55] LABS: Hemoglobin 16.5 g/dL (13.5-17.5); Mean Corpuscular HGB CONC 34.2 g/dL (32.0-36.0); Mean Corpuscular Hemoglobin 30.6 pg (27.0-33.0); Mean Corpuscular Volume 89.6 fl (81.2-95.1); Mean Platelet Volume 10.4 fl (7.4-10.4); Platelet Count 301 10x3/uL (150-450); RBC Distribution Width 12.2 % (11.5-14.5); Red Blood Cell (RBC) Count 5.39 10x6/uL (4.32-5.72); White Blood Cell (WBC) Count 7.9 10x3/uL (3.5-10.5)
[2021-09-18 14:58] LABS: Bacteria/HPF None Seen HPF (None Seen); Mucous/LPF 2+ LPF (<2+); RBC/HPF 0-3 HPF (0-3); Squamous Epithelial 0-3 HPF (0-3)
[2021-09-18 15:08] LABS: PTT 27.6 sec (22.0-33.0); Prothrombin Time 11.2 sec (9.5-12.1)
[2021-09-18 15:12] LABS: Anion Gap 18 mmol/L (10-20); BUN (Urea Nitrogen) 19 mg/dL (8.4-25.7); Calc. Creatinine Clearance 0 mL/min (70-130); Calcium 9.8 mg/dL (7.8-10.44); Carbon Dioxide 25 mmol/L (23-31); Chloride 105 mmol/L (98-107); Glucose 86 mg/dL (80-115); Potassium 4.6 mmol/L (3.5-5.1); Sodium 143 mmol/L (136-145)
[2021-09-19 00:56] LABS: SARS-CoV-2 PCR by NAA Not Detected (NotDetected)
== END 2021-09-18 13:22 | disposition home or self-care (01) ==
LOC: LABBT 13:21
PROVIDERS: ATTEND Urology
DX: Z01.818 Encounter for other preprocedural examination (principal); N40.1 Benign prostatic hyperplasia with lower urinary tract symptoms; Z20.822 Contact with and (suspected) exposure to COVID-19
CPT/HCPCS: 80048; 81001; 85027; 85610; 85730; 87086; 93005; U0003; U0005; 93010

== ENCOUNTER 2021-09-20 06:35 | Observation (INO) | payer MEDICARE, OTHER ==
[2021-09-18 11:51] VITALS: BMI 31.4
[2021-09-20] MEDS ORDERED: B & O ONE (08:41)
[2021-09-20] MEDS ORDERED: Fentanyl 100 MCG/2 ML VIAL ONE (08:54)
[2021-09-20] MEDS ORDERED: Levofloxacin 500 mg/D5W 100 ml Premix Bag ONE (08:54)
[2021-09-20] MEDS ORDERED: Lidocaine 1% PF 5 ML VIAL ONE (09:06)
[2021-09-20] MEDS ORDERED: Ondansetron PF 4 MG/2 ML Vial ONE ×2 (09:06→10:20)
[2021-09-20] MEDS ORDERED: PROPOFOL 200 MG/20 ML VIAL ONE (09:06)
[2021-09-20] MEDS ORDERED: diphenhydrAMINE 25 MG CAP PO PRN (10:11)
[2021-09-20] MEDS ORDERED: Oxybutynin 5 MG TAB PO PRN (10:11)
[2021-09-20] MEDS ORDERED: Mag-Al 1200 mg/1200 mg/30 ML UDCUP PO PRN (10:11)
[2021-09-20] MEDS ORDERED: Morphine 2 MG/ML VIAL SLOW IVP PRN (10:11)
[2021-09-20] MEDS ORDERED: Phenazopyridine HCl 97.5 MG TABLET PO PRN (10:11)
[2021-09-20] MEDS ORDERED: Hyoscyamine Sulfate SL 0.125 mg Tablet SL PRN (10:11)
[2021-09-20] MEDS ORDERED: Acetaminophen 500 MG TAB PO PRN (10:11)
[2021-09-20] MEDS ORDERED: Ondansetron PF 4 MG/2 ML Vial IVP PRN (10:11)
[2021-09-20] MEDS ORDERED: hydrALAZINE 20 MG/ML VIAL SLOW IVP PRN (10:11)
[2021-09-20] MEDS ORDERED: traMADol HCl 50 MG TAB PO PRN (10:13)
[2021-09-20] MEDS ORDERED: Ondansetron HCl/PF 4 MG/2 ML Vial IVP PRN (10:22)
[2021-09-20] MEDS ORDERED: Promethazine HCl 25 MG/ML VIAL IM PRN (10:22)
[2021-09-20] MEDS ORDERED: Promethazine HCl 25 MG/ML VIAL IVPB PRN (10:22)
[2021-09-20] MEDS ORDERED: Phenazopyridine HCl 100 MG TAB PO PRN (11:20)
[2021-09-20] MEDS: DULoxetine 60 MG CAP PO SCH (20:22)
[2021-09-20] MEDS: Docusate 100 MG CAP PO SCH (20:22)
[2021-09-20] MEDS: Gabapentin 300 MG CAP PO SCH (20:23)
[2021-09-20] MEDS ORDERED: Non-Formulary Item 1 EACH (Aripiprazole [Abilify] 20 MG Tablet) PO SCH (21:00)
[2021-09-20] MEDS ORDERED: Atorvastatin Calcium 40 MG TAB PO SCH (21:00)
[2021-09-20] MEDS ORDERED: Bupropion 150 MG XL TAB PO SCH (21:00)
[2021-09-20] MEDS ORDERED: Aripiprazole 10 MG TAB PO SCH (21:00)
[2021-09-21 07:37] VITALS: BP 130/74; TEMP 98.3
[2021-09-21] MEDS: Gabapentin 300 MG CAP PO SCH (08:24)
[2021-09-21] MEDS: Docusate 100 MG CAP PO SCH (08:27)
[2021-09-21] MEDS: DULoxetine 60 MG CAP PO SCH (08:27)
[2021-09-21] MEDS ORDERED: Magnesium Oxide 400 MG TAB PO SCH (09:00)
[2021-09-21] MEDS ORDERED: Non-Formulary Item 1 EACH (Magnesium Oxide [Magnesium] 400 MG Tablet) PO SCH (09:00)
== END 2021-09-21 11:30 | disposition home or self-care (01) ==
LOC: SDC 06:35 → SJJU 10:11
PROVIDERS: ADMIT Urology; ATTEND Urology
PROC: 0VT08ZZ Resection of Prostate, Via Natural or Artificial Opening Endoscopic (ICD-10-PCS; principal; 2021-09-20)
DX: N40.1 Benign prostatic hyperplasia with lower urinary tract symptoms (principal); N13.8 Other obstructive and reflux uropathy; R33.8 Other retention of urine; K21.9 Gastro-esophageal reflux disease without esophagitis; Z79.899 Other long term (current) drug therapy
CPT/HCPCS: 96365; G0378; J1956; J2405; J2704; J3010

== ENCOUNTER 2022-06-19 12:07 | Emergency (ER) | payer OTHER ==
[2022-06-19 12:23] LABS: Bilirubin Negative (Negative); Blood, Urine Negative (Negative); Clarity Clear (Clear); Glucose, Urine (Dipstick) Normal (Negative); Ketone, Urine Negative (Negative); Leukocyte Negative Leu/uL (Negative); Nitrite Negative (Negative); Protein, Urine (Dipstick) Negative (Neg-Trace); Specific Gravity, Urine 1.005 (1.002-1.036); Urobilinogen Normal mg/dL (Less than 2)
[2022-06-19 13:04] LABS: #Basophils 0.1 thou/uL (0.0-0.2); #Eosinphils 0.2 thou/uL (0.0-0.7); #Monocytes 0.5 thou/uL (0.11-0.59); #Neutrophils 4.3 thou/uL (1.40-6.50); %Basophils 0.8 % (0.0-1.0); %Eosinophils 2.3 % (0.0-10.0); %Lymphocytes 28.2 % (21.0-51.0); %Monocytes 7.6 % (0.0-10.0); %Neutrophils 61.1 % (42.0-75.0); Hemoglobin 15.8 g/dL (14.0-18.0); Mean Corpuscular HGB CONC 33.6 g/dL (32.0-36.0); Mean Corpuscular Hemoglobin 31.7 pg (27.0-31.0); Mean Corpuscular Volume 94.3 fl (78.0-98.0); Mean Platelet Volume 8.5 fL (7.4-10.4); Platelet Count 257 10x3/uL (130-400); RBC Distribution Width 11.9 % (11.5-14.5); Red Blood Cell (RBC) Count 4.99 mill/uL (4.70-6.10)
[2022-06-19 13:23] LABS: ALT (SGPT) 37 U/L (8-55); AST (SGOT) 21 U/L (5-34); Albumin 4.3 g/dL (3.4-4.8); Alkaline Phosphatase 52 U/L (40-110); Anion Gap 14 mmol/L (10-20); BUN (Urea Nitrogen) 12 mg/dL (8.4-25.7); Bilirubin, Total 0.4 mg/dL (0.2-1.2); Calc. Creatinine Clearance 0 mL/min (70-130); Calcium 9.2 mg/dL (7.8-10.44); Carbon Dioxide 22 mmol/L (23-31); Chloride 106 mmol/L (98-107); Estimated GFR 90; Globulin 2.9 g/dL (2.4-3.5); Glucose 73 mg/dL (80-115); Lipase 14 U/L (8-78); Protein, Total 7.2 g/dL (5.8-8.1); Sodium 138 mmol/L (136-145)
== END 2022-06-19 17:43 | disposition home or self-care (01) ==
LOC: ERS 12:07
DX: R10.9 Unspecified abdominal pain (principal); Z20.822 Contact with and (suspected) exposure to COVID-19
CPT/HCPCS: 71046; 74176; 80053; 81003; 83690; 85025; 87804 ×2; U0003; U0005; 36415

== ENCOUNTER 2023-11-07 16:55 | Emergency (ER) | payer MEDICARE, OTHER ==
[2023-11-07] MEDS ORDERED: Ketorolac Tromethamine 30 MG (1 mL) VIAL ONE (18:51)
== END 2023-11-07 19:03 | disposition home or self-care (01) ==
LOC: ERS 16:55
DX: S22.41XA Multiple fractures of ribs, right side, initial encounter for closed fracture (principal); I10 Essential (primary) hypertension; Z79.899 Other long term (current) drug therapy; W01.0XXA Fall on same level from slipping, tripping and stumbling without subsequent striking against object, initial encounter; Y93.E1 Activity, personal bathing and showering
CPT/HCPCS: 70450; 72125; 72128; 72131; 96372; 99283; J1885

== ENCOUNTER 2024-02-13 09:59 | Emergency (ER) | payer MEDICARE, OTHER | END 2024-02-13 12:05 | disposition home or self-care (01) | LOC: ERS 09:59 | DX: M25.512 Pain in left shoulder (principal); I10 Essential (primary) hypertension; X50.1XXA Overexertion from prolonged static or awkward postures, initial encounter; Y93.I9 Activity, other involving external motion | CPT/HCPCS: 93005 ==

== ENCOUNTER 2024-02-24 09:42 | Emergency (ER) | payer MEDICARE, OTHER ==
[2024-02-24] MEDS ORDERED: Ketorolac Tromethamine 30 MG (1 mL) VIAL ONE (11:42)
[2024-02-24] MEDS ORDERED: Metoclopramide HCl 10 MG (2 mL) VIAL ONE (11:42)
[2024-02-24] MEDS ORDERED: Metoclopramide HCl 10 MG TAB ONE (11:46)
== END 2024-02-24 13:13 | disposition home or self-care (01) ==
LOC: ERS 09:42
DX: H92.01 Otalgia, right ear (principal); I10 Essential (primary) hypertension
CPT/HCPCS: 70450; J1885; 96372; J2765